=== PATIENT | female | born 1930 | race Caucasian/White ===

== ENCOUNTER 2017-11-12 11:50 | Observation (INO) ==
--- NOTE | 2017-11-12 12:03 | Emergency Department Note ---
Disposition Clinical Impression: Shoulder pain, left Qualifiers: Chronicity: acute Qualified Code(s): M25.512 - Pain in left shoulder Syncope Qualifiers: Syncope type: unspecified Qualified Code(s): R55 - Syncope and collapse Disposition: Admitted As Inpatient Condition: Fair Time of Disposition: 13:21 (Dr Strickland) Chest Pain HPI - General Chief Complaint: ED Nausea/Vomiting/Diarrhea Stated Complaint: n/v/d, near syncope Time Seen by Provider: 11/12/17 11:59 Source: EMS Mode of arrival: EMS Limitations: no limitations Vital Signs Reviewed: Yes Nursing Notes Reviewed: Yes - History of Present Illness Pt complaint: other (Left shoulder pain) Onset (ago): unknown Duration: now resolved Onset: during rest Severity: mild Quality: aching Pain Radiation: none Improves with: nothing Worsens with: nothing Context: other (Patient called PCP secondary to left shoulder pain. She was instructed to take 1 nitroglycerin. Subsequently she had a syncopal episode and started to have nausea vomiting. Upon ED evaluation she was stable with no clinical signs for distress. She states left shoulder discomfort.) Associated symptoms: Reports: nausea, vomiting, syncope. Denies: diaphoresis, dyspnea, sense of impending doom, palpitations, fever, cough, leg swelling Treatments prior to arrival chest pain: nitroglycerin (The patient took a dose of nitroglycerin) - Related Data Home Medications Medication Instructions Recorded Confirmed ALPRAZolam [Xanax 0.25 MG Tablet] 0.125 - 0.25 mg PO BID PRN 01/21/16 11/12/17 Ascorbic Acid [Vitamin C with Yanna 1,000 mg PO DAILY 01/21/16 11/12/17 Hips] Aspirin 81 mg PO DAILY 01/21/16 11/12/17 Calcium Carbonate [Calcium] 600 mg PO BID 01/21/16 11/12/17 Doxazosin Mesylate [Cardura] 2 mg PO DAILY 01/21/16 11/12/17 Ergocalciferol (VITAMIN D2) 800 unit PO DAILY 01/21/16 11/12/17 [Vitamin D] Fluticasone Propionate Nasal 2 spr NS DAILY 01/21/16 11/12/17 [Flonase] Gabapentin [Neurontin] 200 mg PO HS 01/21/16 11/12/17 Lansoprazole [Prevacid] 15 mg PO DAILY 01/21/16 11/12/17 Levothyroxine [Synthroid] 75 mcg PO 0630 01/21/16 11/12/17 Loratadine [Claritin] 10 mg PO DAILY 01/21/16 11/12/17 Losartan Potassium [Cozaar] 50 mg PO DAILY 01/21/16 11/12/17 Montelukast [Singulair] 10 mg PO HS 01/21/16 11/12/17 Multivitamin [One Daily Essential] 1 each PO DAILY 01/21/16 11/12/17 Polyethylene Glycol 3350 [MiraLAX] 17 gm PO DAILY PRN 01/21/16 11/12/17 Potassium Chloride [K-Tab ER] 20 meq PO BID 01/21/16 11/12/17 Simvastatin [Zocor] 20 mg PO HS 01/21/16 11/12/17 Triamterene/HCTZ 37.5/25mg 1 each PO DAILY 01/21/16 11/12/17 [Dyazide] amLODIPine [Norvasc] 5 mg PO DAILY 01/21/16 11/12/17 Previous Rx's Medication Instructions Recorded HYDROcodone/Acet 5/325 mg [[place] 1 tab PO Q4H PRN #10 tab 05/09/17 5-325 mg] Benzonatate [Tessalon] 100 mg PO TID #15 capsule 06/22/17 Guaifenesin [Mucinex] 600 mg PO BID #30 tab.er.12h 06/22/17 PredniSONE [Deltasone] 20 mg PO DAILY #12 tablet 06/22/17 Allergies Allergy/AdvReac Type Severity Reaction Status Date / Time amlodipine [From Norvasc] AdvReac Cramping Verified 06/22/17 12:04 of the Muscles metoclopramide [From Reglan] AdvReac Nausea Verified 06/22/17 12:04 pentazocine [From Talwin] AdvReac Nausea Verified 06/22/17 12:04 All systems ED: reviewed and negative except as stated. Review of Systems: As Per HPI Chest Pain PMH - Past Medical History Medical history: Reports: non-contributory, coronary artery disease, hyperlipidemia, hypertension Surgical history: Reports: appendectomy, cholecystectomy Psychiatric history: Reports: anxiety - Social History Smoking Status: Never smoker Alcohol use: Reports: none Drug use: Reports: none Physical Exam - General Limitations: no limitations General appearance: alert, in distress - Head Head exam: atraumatic - Eye Eye exam: Present: normal appearance, PERRL, EOMI. Absent: scleral icterus, conjunctival injection, nystagmus, miosis, mydriasis - ENT ENT exam: normal exam, normal oropharynx, mucous membranes moist - Neck Neck exam: Present: normal inspection, full ROM, trachea midline - Chest Chest inspection: Present: normal inspection - Respiratory Respiratory exam: Present: normal lung sounds bilaterally - Cardiovascular Cardiovascular exam: Present: regular rate, normal rhythm, normal heart sounds - Abdominal Exam Abdominal exam: Present: soft, Non-Tender. Absent: tenderness, distention, guarding, rebound, rigidity - Extremities Exam Extremities exam: Present: normal inspection, full ROM. Absent: tenderness, pedal edema - Expanded Upper Extremity Exam Shoulder exam: Present: tenderness (Tenderness of patient on the left shoulder joint at all appreciated crepitus or deformity or warm) Arm exam: Present: normal inspection, full ROM Elbow exam: Present: normal inspection, full ROM Hand exam: Present: normal inspection, full ROM - Expanded Lower Extremity Exam Hip/Pelvis exam: Present: normal inspection, full ROM - Back Exam Back exam: Present: normal inspection, full ROM. Absent: tenderness - Neurological Exam Neurological exam: Present: alert, oriented X3 - Psychiatric Psychiatric exam: Present: normal affect, anxious - Skin Skin exam: Present: warm, dry, intact, pallor. Absent: diaphoresis Course Vital Signs Temperature 97.9 F 11/12/17 11:52 Pulse Rate 78 11/12/17 11:52 Respiratory Rate 18 11/12/17 11:52 Blood Pressure 164/81 11/12/17 11:52 O2 Sat by Pulse Oximetry 99 11/12/17 11:52 Temperature 97.5 F L 11/12/17 14:37 Pulse Rate 84 11/12/17 14:37 Respiratory Rate 16 11/12/17 14:37 Blood Pressure 170/77 11/12/17 14:37 O2 Sat by Pulse Oximetry 96 11/12/17 14:37 Oxygen Delivery Oxygen Delivery Room Air Chest Pain - Differential Diagnosis Likely: stable angina, unstable angina pectoris, atypical chest pain, st elevation myocardial infraction, chest pain, biliary colic - Medical Records Medical records reviewed: Yes I reviewed the patient's medical records. - Lab Data Result diagrams: 11/12/17 12:20 11/12/17 12:20 Lab Results 11/12/17 11/12/17 11/12/17 Range/Units 12:20 12:20 12:20 WBC (4.3-11.1) K/mcL RBC (3.82-4.97) M/mcL Hgb (11.5-15.4) g/dL Hct (35.3-44.9) % MCV (83.0-100.0) fL MCH (28.0-33.3) pg MCHC (31.6-35.5) g/dL RDW (11.5-14.5) % Plt Count (140-400) K/mcL MPV (9.4-12.4) fL Immature Gran % (0-4) % Seg Neutrophils % % Lymphocytes % % Monocytes % % Eosinophils % % Basophils % % Neutrophils # (1.6-8.9) K/mcL Lymphocytes # (0.6-4.6) K/mcL Monocytes # (0.0-1.3) K/mcL Eosinophils # (0.0-0.6) K/mcL Basophils # (0.0-0.2) K/mcL PT 11.2 (9.4-12.1) Seconds INR 1.0 APTT 27.3 (26.0-36.0) Seconds Sodium (136-145) mEq/L Potassium (3.5-5.1) mEq/L Chloride (98-107) mEq/L Carbon Dioxide (23-29) mEq/L BUN (8-23) mg/dL Creatinine (0.60-1.20) mg/dL Est GFR ( Amer) (> 60) Est GFR (Non-Af Amer) (> 60) BUN/Creatinine Ratio (6-26) Glucose (70-105) mg/dL Calculated Osmolality (280-300) Calcium (8.6-10.3) mg/dL Magnesium (1.6-2.6) mg/dL Total Bilirubin 0.5 (0.3-1.0) mg/dL Direct Bilirubin 0.1 (0.0-0.2) mg/dL Indirect Bilirubin 0.4 (0.0-1.2) mg/dL AST 16 (13-39) Units/L ALT 10 (7-52) Units/L Alkaline Phosphatase 45 (34-104) Units/L Troponin I (< 0.04) ng/mL Serum Total Protein 6.0 L (6.4-8.9) g/dL Albumin 3.9 (3.5-5.7) g/dL Globulin 2.1 L (2.4-3.5) g/dL Albumin/Globulin Ratio 1.9 (1.1-2.2) Lipase 8 L (11-82) Units/L 11/12/17 11/12/17 11/12/17 Range/Units 12:20 12:20 12:26 WBC 6.4 (4.3-11.1) K/mcL RBC 4.00 (3.82-4.97) M/mcL Hgb 12.8 (11.5-15.4) g/dL Hct 38.1 (35.3-44.9) % MCV 95.3 (83.0-100.0) fL MCH 32.0 (28.0-33.3) pg MCHC 33.6 (31.6-35.5) g/dL RDW 12.3 (11.5-14.5) % Plt Count 224 (140-400) K/mcL MPV 8.2 L (9.4-12.4) fL Immature Gran % 0.3 (0-4) % Seg Neutrophils % 76.6 % Lymphocytes % 12.6 % Monocytes % 9.1 % Eosinophils % 0.8 % Basophils % 0.6 % Neutrophils # 4.9 (1.6-8.9) K/mcL Lymphocytes # 0.8 (0.6-4.6) K/mcL Monocytes # 0.6 (0.0-1.3) K/mcL Eosinophils # 0.1 (0.0-0.6) K/mcL Basophils # 0.0 (0.0-0.2) K/mcL PT (9.4-12.1) Seconds INR APTT (26.0-36.0) Seconds Sodium 134 L (136-145) mEq/L Potassium 3.4 L (3.5-5.1) mEq/L Chloride 95 L (98-107) mEq/L Carbon Dioxide 30 H (23-29) mEq/L BUN 12 (8-23) mg/dL Creatinine 0.57 L (0.60-1.20) mg/dL Est GFR ( Amer) > 60 (> 60) Est GFR (Non-Af Amer) > 60 (> 60) BUN/Creatinine Ratio 21 (6-26) Glucose 142 H (70-105) mg/dL Calculated Osmolality 280 (280-300) Calcium 8.8 (8.6-10.3) mg/dL Magnesium 2.0 (1.6-2.6) mg/dL Total Bilirubin (0.3-1.0) mg/dL Direct Bilirubin (0.0-0.2) mg/dL Indirect Bilirubin (0.0-1.2) mg/dL AST (13-39) Units/L ALT (7-52) Units/L Alkaline Phosphatase (34-104) Units/L Troponin I < 0.03 (< 0.04) ng/mL Serum Total Protein (6.4-8.9) g/dL Albumin (3.5-5.7) g/dL Globulin (2.4-3.5) g/dL Albumin/Globulin Ratio (1.1-2.2) Lipase (11-82) Units/L - Radiology Data Radiology results reviewed: Yes I reviewed the patient's radiology results. Chest X-Ray 11/12/17 12:01 IMPRESSION: Shallow lung inflation. The cardiac silhouette appears enlarged. No acute airspace disease identified. D/ / Geovanny Foster / Geovanny Foster Interpreting Provider: Geovanny Foster - EKG Data EKG attestation: Yes I reviewed and interpreted this EKG. Rate: normal Rhythm: NSR, PVC's [place]/QRS: normal Interpretation: normal EKG, unchanged when compared to prior tracing (date) (), nonspecific ST-T wave changes
[2017-11-12 12:27] LABS: Basophils % 0.6 %; Eosinophils # 0.1 K/mcL (0.0-0.6); Eosinophils % 0.8 %; Hematocrit 38.1 % (35.3-44.9); Hemoglobin 12.8 g/dL (11.5-15.4); Immature Granulocytes % 0.3 % (0-4); Lymphocytes # 0.8 K/mcL (0.6-4.6); Lymphocytes % 12.6 %; Mean Corpuscular HGB Conc 33.6 g/dL (31.6-35.5); Mean Corpuscular Volume 95.3 fL (83.0-100.0); Mean Platelet Volume 8.2 fL (9.4-12.4); Monocytes # 0.6 K/mcL (0.0-1.3); Monocytes % 9.1 %; Neutrophils # 4.9 K/mcL (1.6-8.9); Platelet Count 224 K/mcL (140-400); Red Cell Distribution Width 12.3 % (11.5-14.5); Segmented Neutrophils % 76.6 %
[2017-11-12 12:35] LABS: Prothrombin Time 11.2 Seconds (9.4-12.1)
[2017-11-12 12:38] LABS: Activated Partial Thrombo Time 27.3 Seconds (26.0-36.0)
[2017-11-12 12:42] LABS: Albumin 3.9 g/dL (3.5-5.7); Albumin/Globulin Ratio 1.9 (1.1-2.2); Bilirubin,Direct 0.1 mg/dL (0.0-0.2); Bilirubin,Indirect 0.4 mg/dL (0.0-1.2); Bilirubin,Total 0.5 mg/dL (0.3-1.0); Globulin 2.1 g/dL (2.4-3.5)
[2017-11-12 12:57] LABS: Troponin I < 0.03 ng/mL (< 0.04)
[2017-11-12 13:12] LABS: BUN/Creatinine Ratio 21 (6-26); Blood Urea Nitrogen 12 mg/dL (8-23); Calcium 8.8 mg/dL (8.6-10.3); Carbon Dioxide 30 mEq/L (23-29); Chloride 95 mEq/L (98-107); Glucose 142 mg/dL (70-105); Osmolality,Calculated 280 (280-300); Potassium 3.4 mEq/L (3.5-5.1); Sodium 134 mEq/L (136-145); eGFR For African Americans > 60 (> 60); eGFR For Non-African Americans > 60 (> 60)
[2017-11-12] MEDS ORDERED: Acetaminophen 325 MG TABLET PO PRN (13:56)
[2017-11-12] MEDS ORDERED: Ondansetron 4 MG/2 ML VIAL IVP PRN (13:56)
[2017-11-12] MEDS ORDERED: ALPRAZolam 0.25 MG TABLET PO PRN (13:56)
[2017-11-12] MEDS ORDERED: *HR* OxyCODONE Oral Soln 5 MG/5 ML UD.LIQ PO PRN (13:56)
[2017-11-12] MEDS ORDERED: Naloxone 0.4 MG/ML INJ IVP PRN (13:56)
--- NOTE | 2017-11-12 16:26 | Internal Med History&Physical ---
Date of Encounter: 11/12/17 Time of Encounter: 15:45 Assessment and Plan (1) Syncope Current visit: Yes Status: Acute Suspect vasovagal etiology from use of nitroglycerin pill. She has been placed on telemetry. Qualifiers: Syncope type: unspecified Qualified Code(s): R55 - Syncope and collapse (2) Hypertension Current visit: Yes Status: Chronic Continue Norvasc, Cozaar, Cardura, and Dyazide. We will check orthostatic vital signs in a.m. Qualifiers: Hypertension type: essential hypertension Qualified Code(s): I10 - Essential (primary) hypertension (3) Hypothyroidism Current visit: Yes Status: Acute We will check TSH in a.m. Continue Synthroid. Qualifiers: Hypothyroidism type: unspecified Qualified Code(s): E03.9 - Hypothyroidism , unspecified (4) Weight loss Current visit: Yes Status: Acute We will order TSH and CT of chest/abdomen. (5) Hypokalemia Current visit: Yes Status: Acute Probably secondary to diuretic use. We will give supplemental potassium, check magnesium, and monitor labs. (6) Shoulder pain, left Current visit: Yes Status: Acute Will order CT to further evaluate. Qualifiers: Chronicity: acute Qualified Code(s): M25.512 - Pain in left shoulder Internal Medicine - H&P: HPI Chief complaint: Syncope, left shoulder pain Admitted From: Emergency Dept Plans for Post Hospital Care: Home History of present illness: Ms. Wood is a 87 year old female who came to emergency room after she had a syncopal episode at home. She reports she developed discomfort in her left chest and shoulder area while sitting and took a nitroglycerin pill. Almost immediately she had an unusual sensation in her head. Her next memory is waking up on the floor approximately 15 minutes later with incontinence of urine and stool. She was brought to emergency room and evaluated and admitted to [facility] for ongoing care needs She has not taken nitroglycerin previously. She states she was given a prescription for this by her PCP Dr. Ren at a 11/02/2017 office visits when she mentioned she has had occasional discomfort episodes in her left shoulder chest and upper arm. She reports an EKG was done in the office and was unremarkable. She felt a nitroglycerin prescription and took the first one at home today. She states the discomfort in her left shoulder/chest has been present for approximately 6 months and occurs from frequency of once every 2-3 days to several times daily. It is not brought on by any activity or position. She denies dyspnea or cough. Her cardiovascular history is significant for hypertension but she denies ID heart failure angina DVT or pulmonary embolus. She thinks she had exercise stress test approximately 2007 which was unremarkable. Past Med Surg Social Fam HX - Past Medical History Medical history: non-contributory, arthritis, coronary artery disease, hyperlipidemia, hypertension Additional medical history: hypothyroidism. anal stenosis. vasovagal syncope Psychiatric history: anxiety - Past Surgical History Surgical History: appendectomy, cholecystectomy Additional surgical history: colonoscopy. umbilical hernia parotid tumor. T& A. right breast. oophrectomy. appendectomy. rig - Social History Smoking Status: Never smoker Smokeless Tobacco Status: No Alcohol use: none Drug use: none - Family History Mother Adopted: No Living Status: Hx Family Cardiac Disorders: Yes Internal Medicine - H&P: Meds ALPRAZolam [Xanax 0.25 MG Tablet] 0.125 - 0.25 mg PO BID PRN 01/21/16 [History] Ascorbic Acid [Vitamin C with Yanna Hips] 1,000 mg PO DAILY 01/21/16 [History] Aspirin 81 mg PO DAILY 01/21/16 [History] Calcium Carbonate [Calcium] 600 mg PO BID 01/21/16 [History] Doxazosin Mesylate [Cardura] 2 mg PO DAILY 01/21/16 [History] Ergocalciferol (VITAMIN D2) [Vitamin D] 800 unit PO DAILY 01/21/16 [History] Fluticasone Propionate Nasal [Flonase] 2 spr NS DAILY 01/21/16 [History] Gabapentin [Neurontin] 200 mg PO HS 01/21/16 [History] Lansoprazole [Prevacid] 15 mg PO DAILY 01/21/16 [History] Levothyroxine [Synthroid] 75 mcg PO 0630 01/21/16 [History] Loratadine [Claritin] 10 mg PO DAILY 01/21/16 [History] Losartan Potassium [Cozaar] 50 mg PO DAILY 01/21/16 [History] Montelukast [Singulair] 10 mg PO HS 01/21/16 [History] Multivitamin [One Daily Essential] 1 each PO DAILY 01/21/16 [History] Polyethylene Glycol 3350 [MiraLAX] 17 gm PO DAILY PRN 01/21/16 [History] Potassium Chloride [K-Tab ER] 20 meq PO BID 01/21/16 [History] Simvastatin [Zocor] 20 mg PO HS 01/21/16 [History] Triamterene/HCTZ 37.5/25mg [Dyazide] 1 each PO DAILY 01/21/16 [History] amLODIPine [Norvasc] 5 mg PO DAILY 01/21/16 [History] HYDROcodone/Acet 5/325 mg [[place] 5-325 mg] 1 tab PO Q4H PRN #10 tab 05/09/17 [Rx ] Benzonatate [Tessalon] 100 mg PO TID #15 capsule 06/22/17 [Rx] Guaifenesin [Mucinex] 600 mg PO BID #30 tab.er.12h 06/22/17 [Rx] PredniSONE [Deltasone] 20 mg PO DAILY #12 tablet 06/22/17 [Rx] 3 Allergy/AdvReac Type Severity Reaction Status Date / Time amlodipine [From Norvasc] AdvReac Cramping Verified 06/22/17 12:04 of the Muscles metoclopramide [From Reglan] AdvReac Nausea Verified 06/22/17 12:04 pentazocine [From Talwin] AdvReac Nausea Verified 06/22/17 12:04 All Systems PM: A 10-system review of systems was performed and is negative for pertinent findings except as documented above in the HPI. Review of systems: Gen.: She states her weight has decreased approximately 30 pounds in the past 3 years, unintentionally Cardiovascular: As per history of present illness Respiratory: She smoked from age [age] but denies chronic lung disease. GI: She has had cholecystectomy. She has occasional GERD symptoms. She had rectal stricture with corrective surgery several years ago. She denies disorders of her liver or exocrine pancreas : She denies hematuria dysuria or kidney stones. She has had UTIs in the past. Neurologic: She denies large distention strokes or seizures. Endocrine: She has hypothyroidism and history of hyperlipidemia. She denies diabetes. Hematology/oncology: She denies blood disorders cancers or anemia Psychiatric: She has anxiety but denies depression or other mental health issues [place] skeletal: She has restless leg syndrome. She has had right total hip replacement, chronic low back pain, and DJD. She denies gout. - Constitutional Vitals: Temp Pulse Resp BP Pulse Ox 97.5 F L 84 16 170/77 96 11/12/17 14:37 11/12/17 14:37 11/12/17 14:37 11/12/17 14:37 11/12/17 14:37 Exam: Gen.: She is a well-developed well-nourished female resting comfortably in bed who appears in no acute distress HEENT: Head is atraumatic and normocephalic. Eyes: EOMI. There is no scleral icterus. Mouth: Mucosa is moist. Neck: Supple and nontender. There is no thyromegaly or adenopathy noted. Heart: Regular without murmurs gallops or ectopics Lungs: No wheezes or crackles are heard. Abdomen: Soft and nontender. No masses or guarding are noted. Extremities: There is no cyanosis edema or clubbing noted. Dorsalis pedis and posterior tibial pulses are trace to 1+ palpable bilaterally. She has no pain on internal or external rotation of the left arm. There is no pain over the biceps tendon. Range of motion of the left shoulder causes no pain. Neurologic: Mental status: She is talkative and a good historian. Cranial nerves: Smile is symmetric. Forehead wrinkles bilaterally. Tongue protrudes midline. EOMI. Motor: There is no pronator drift. Cerebellar: Finger to nose is intact bilaterally. Skin: Warm and dry Internal Med - H&P Results - Labs CBC & Chem 7: 11/12/17 12:20 11/12/17 12:20
[2017-11-12] MEDS: Benzonatate 100 MG CAPSULE PO SCH ×2 (18:35→21:41)
[2017-11-12] MEDS ORDERED: Gabapentin 100 MG CAPSULE PO SCH (21:00)
[2017-11-13 07:02] LABS: BUN/Creatinine Ratio 22 (6-26); Blood Urea Nitrogen 12 mg/dL (8-23); Calcium 8.9 mg/dL (8.6-10.3); Carbon Dioxide 30 mEq/L (23-29); Chloride 95 mEq/L (98-107); Glucose 90 mg/dL (70-105); Osmolality,Calculated 273 (280-300); Potassium 3.6 mEq/L (3.5-5.1); Sodium 132 mEq/L (136-145); eGFR For African Americans > 60 (> 60); eGFR For Non-African Americans > 60 (> 60)
[2017-11-13 07:15] LABS: Thyroid Stimulating Hormone 0.847 mcIU/mL (0.340-5.600)
[2017-11-13] MEDS: Benzonatate 100 MG CAPSULE PO SCH (08:58)
[2017-11-13] MEDS: amLODIPine 5 MG TABLET PO SCH ×2 (08:58→09:16)
[2017-11-13] MEDS ORDERED: Aspirin 81 MG TAB.CHEW PO SCH (09:00)
[2017-11-13] MEDS ORDERED: Cholecalciferol (D-3) 1,000 UNIT TABLET PO SCH (09:00)
[2017-11-13] MEDS ORDERED: Loratadine 10 MG TABLET PO SCH (09:00)
[2017-11-13] MEDS ORDERED: Fluticasone Propionate Nasal 50 MCG/SPRAY BOTTLE NS SCH (09:00)
[2017-11-13] MEDS ORDERED: Ascorbic Acid 500 MG TABLET PO SCH (09:00)
[2017-11-13] MEDS ORDERED: Multivit/Ca/Min/Fe/FA 1 TAB TABLET PO SCH (09:00)
--- NOTE | 2017-11-13 09:57 | Electrocardiograph Report ---
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
--- NOTE | 2017-11-13 10:46 | Discharge Summary ---
Date of Encounter: 11/13/17 Time of Encounter: 10:25 - Discharge Diagnosis (1) Syncope Priority: Primary Status: Acute Qualifiers: Syncope type: unspecified Qualified Code(s): R55 - Syncope and collapse (2) Hypertension Priority: Secondary Status: Chronic Qualifiers: Hypertension type: essential hypertension Qualified Code(s): I10 - Essential (primary) hypertension (3) Hypothyroidism Priority: Secondary Status: Chronic Qualifiers: Hypothyroidism type: unspecified Qualified Code(s): E03.9 - Hypothyroidism , unspecified (4) Weight loss Priority: Secondary Status: Acute (5) Hypokalemia Priority: Secondary Status: Acute (6) Shoulder pain, left Priority: Secondary Status: Chronic Qualifiers: Chronicity: acute Qualified Code(s): M25.512 - Pain in left shoulder Hospital course: Ms. Wood is a 87 year old female who came to emergency room after she had a syncopal episode at home. She reports she developed discomfort in her left chest and shoulder area while sitting and took a nitroglycerin pill. Almost immediately she had an unusual sensation in her head. Her next memory is waking up on the floor approximately 15 minutes later with incontinence of urine and stool. She was brought to emergency room and evaluated and admitted to [facility] for ongoing care needs. Initial orders were written by the emergency room physician. I saw her on November 12 and performed the history and physical. She had no further syncopal or near syncopal episodes. She had no further discomfort in her chest or shoulder. CT of chest abdomen and pelvis was ordered to further evaluate weight loss and complaints of chest/shoulder pain. No significant pathology was seen. Etiology of the chest/shoulder discomfort was not determined. Her PCP can follow up on this. Supplement potassium was given and hypokalemia normalized with potassium level 3.6 on day of discharge. Her PCP can recheck potassium level at a follow-up office visit in a few days to ensure stability. TSH returned normal at 0.847. On November 13 she felt improved and wished to be discharged home. She will follow with her PCP within 1 week. - Time Spent with Patient Total time spent providing and/or coordinating discharge services: - Discharge Medications Home Medications: ALPRAZolam [Xanax 0.25 MG Tablet] 0.125 - 0.25 mg PO BID PRN 01/21/16 [History] Ascorbic Acid [Vitamin C with Yanna Hips] 1,000 mg PO DAILY 01/21/16 [History] Aspirin 81 mg PO DAILY 01/21/16 [History] Calcium Carbonate [Calcium] 600 mg PO BID 01/21/16 [History] Doxazosin Mesylate [Cardura] 2 mg PO DAILY 01/21/16 [History] Ergocalciferol (VITAMIN D2) [Vitamin D] 800 unit PO DAILY 01/21/16 [History] Fluticasone Propionate Nasal [Flonase] 2 spr NS DAILY 01/21/16 [History] Gabapentin [Neurontin] 200 mg PO HS 01/21/16 [History] Lansoprazole [Prevacid] 15 mg PO DAILY 01/21/16 [History] Levothyroxine [Synthroid] 75 mcg PO 0630 01/21/16 [History] Loratadine [Claritin] 10 mg PO DAILY 01/21/16 [History] Losartan Potassium [Cozaar] 50 mg PO DAILY 01/21/16 [History] Montelukast [Singulair] 10 mg PO HS 01/21/16 [History] Multivitamin [One Daily Essential] 1 each PO DAILY 01/21/16 [History] Polyethylene Glycol 3350 [MiraLAX] 17 gm PO DAILY PRN 01/21/16 [History] Potassium Chloride [K-Tab ER] 20 meq PO BID 01/21/16 [History] Simvastatin [Zocor] 20 mg PO HS 01/21/16 [History] Triamterene/HCTZ 37.5/25mg [Dyazide] 1 each PO DAILY 01/21/16 [History] amLODIPine [Norvasc] 5 mg PO DAILY 01/21/16 [History] HYDROcodone/Acet 5/325 mg [[place] 5-325 mg] 1 tab PO Q4H PRN #10 tab 05/09/17 [Rx ] Benzonatate [Tessalon] 100 mg PO TID #15 capsule 06/22/17 [Rx] Guaifenesin [Mucinex] 600 mg PO BID #30 tab.er.12h 06/22/17 [Rx] PredniSONE [Deltasone] 20 mg PO DAILY #12 tablet 06/22/17 [Rx] Allergies/Adverse Reactions: 3 Allergy/AdvReac Type Severity Reaction Status Date / Time amlodipine [From Norvasc] AdvReac Cramping Verified 06/22/17 12:04 of the Muscles metoclopramide [From Reglan] AdvReac Nausea Verified 06/22/17 12:04 pentazocine [From Talwin] AdvReac Nausea Verified 06/22/17 12:04 Date of admission: 11/12/17 13:44 Primary care physician: Reggie Ren MD Consults: 11/12/17 15:11 Consult to Nutrition [CONS] Routine Comment: Consulting Provider: NUTRITION Reason for Dietary Consult: MST Score - Constitutional Vitals: Temp Pulse Resp BP Pulse Ox 98.3 F 72 16 151/81 96 11/13/17 06:00 11/13/17 06:00 11/13/17 06:00 11/13/17 06:00 11/13/17 06:00 - Patient Status Disposition: Home, Self-Care Condition: Fair Overall status at discharge: patient is progressing back to baseline - Discharge Instructions Follow Up With: Reggie Ren MD [Primary Care Provider] - 1 week - Diet and Activity Activity: resume usual activities as tolerated Diet: advance to your usual diet
[2017-11-13 11:33] VITALS: BP 142/76
[2017-11-13] MEDS ORDERED: amLODIPine 5 MG TABLET PO SCH (17:00)
== END 2017-11-13 12:40 | disposition home or self-care (01) ==
LOC: INPPIK 11:50 → EMEROOPIK 11:50 → INPPIK 14:36
PROVIDERS: ADMIT Internal Medicine; ATTEND Internal Medicine